=== PATIENT | female | born 2000 | race Two or more races ===

== ENCOUNTER 2023-01-05 15:54 | Emergency (ER) | payer OTHER ==
[~2023-01-05] VITALS: Ht 152.4 cm; Wt 52.6 kg
[2023-01-05 20:54] LABS: HEMATOCRIT 38.2 % (36.0-45.00); HEMOGLOBIN 12.4 g/dL (12.0-15.00); MEAN CELL VOLUME 86.2 fL (80.00-100.00); MEAN CORPUSCULAR HEMOGLOBIN 28.1 pg (27.00-32.0); MEAN CORPUSCULAR HGB CONC 32.6 g/dl (32.0-36.0); PLATELET COUNT 397 K/uL (150-450); RED BLOOD COUNT 4.43 M/uL (4.00-6.00); RED CELL DISTRIBUTION WIDTH 15.2 % (11.5-14.5)
[2023-01-05 21:05] LABS: URINE APPEARANCE Cloudy; URINE BILIRRUBIN Negative (NEGATIVE); URINE BLOOD Large; URINE COLOR Red; URINE GLUCOSE Negative (NEGATIVE); URINE LEUKOCYTE Small; URINE NITRATE Negative; URINE UROBILINOGEN 0.2 E.U./dl
[2023-01-05 21:08] LABS: URINE BACTERIA 2978.6 uL (0.0-1933); URINE EPITHELIAL CELLS 30.9 uL (0.0-38.8); URINE RBC 734.2 uL (0.0-20.8); URINE WBC 212.8 uL (0.0-23.2)
[2023-01-05 21:36] LABS: ANION GAP 9 (10.0-20.0); BLOOD UREA NITROGEN 11 mg/dL (7-18); BUN CREA RATIO 15 (7.0-25.0); CALCIUM 9.5 mg/dL (8.5-10.1); CARBON DIOXIDE 28 mEq/L (21-32); CHLORIDE 106 mmol/L (98-107); CREATININE SERUM 0.72 mg/dL (0.55-1.02); GFR 102.25; GLUCOSE FASTING 90 mg/dL (65-100); HCG QUANTITATIVE < 1 mUI/mL (1-3); OSMOLALITY SERUM 276 MOSM/KG (275-295); POTASSIUM 4.33 mEq/L (3.5-5.1); SODIUM 139 mmol/L (136-145)
[2023-01-05 21:51] LABS: URINE PROTEIN 100 (NEGATIVE); URINE YEAST NEGATIVE /hpf
[2023-01-05 21:59] LABS: URINE CRYSTALS NEGATIVE /HPF
== END 2023-01-05 22:26 | disposition home or self-care (01) ==
LOC: ER 15:54
PROVIDERS: General Practice
DX: N93.9 Abnormal uterine and vaginal bleeding, unspecified (principal); T38.4X5A Adverse effect of oral contraceptives, initial encounter; Y92.89 Other specified places as the place of occurrence of the external cause; N83.201 Unspecified ovarian cyst, right side